=== PATIENT | male | born 1995 | race Two or more races ===

== ENCOUNTER 2020-10-26 15:59 | Inpatient (IN) | payer OTHER ==
[~2020-10-26] VITALS: Ht 177.8 cm; Wt 57.0 kg
[2020-10-26] MEDS ORDERED: DEXTROSE 50%-WATER 25 GM/50 ML SYRINGE IVP ONE (17:15)
[2020-10-26] MEDS ORDERED: SODIUM CHLORIDE 0.9% 1,000 ML IV ONE (17:15)
[2020-10-26 17:18] LABS: COVID AG,FIA SOURCE NASOPHARYNGEAL
[2020-10-26] MEDS ORDERED: METOCLOPRAMIDE HCL 5 MG/ML 2 ML VIAL IVP ONE (17:30)
[2020-10-26] MEDS ORDERED: MAGNESIUM SULFATE 2 GM, MVI, ADULT NO.1 WITH VIT K 10 ML, THIAMINE 100 MG, FOLIC ACID 1... IV ONE ×5 (17:30)
[2020-10-26 17:34] LABS: BASOPHILS % (AUTO) 0.6 % (0.0-2.0); EOSINOPHILS % (AUTO) 0.7 % (1.0-6.0); HEMATOCRIT 46.3 % (41-53); HEMOGLOBIN 15.9 g/dL (13.5-17.5); LYMPHOCYTES # (AUTO) 1.5 K/uL (1.0-4.8); LYMPHOCYTES % (AUTO) 28.7 % (22.0-44.0); MEAN CORPUSCULAR HEMOGLOBIN 29.8 pg (26.0-34.0); MEAN CORPUSCULAR HGB CONC 34.4 G/dL (31.0-37.0); MEAN CORPUSCULAR VOLUME 87 fL (80-100); MONOCYTES # (AUTO) 0.7 K/uL (0.1-1.0); MONOCYTES % (AUTO) 12.7 % (2.0-9.0); NEUTROPHILS # (AUTO) 3.1 K/uL (1.8-7.7); NEUTROPHILS % (AUTO) 57.3 % (40.0-70.0); PLATELET COUNT (AUTO) 228 K/uL (150-450); RED BLOOD CELL COUNT(AUTO) 5.34 MIL/uL (4.50-5.90); RED CELL DISTRIBUTION WIDTH 13.4 % (11.5-14.5)
[2020-10-26 17:43] LABS: ANION GAP 15 mmol/L (8-16); CALCIUM, TOTAL 8.6 mg/dL (8.8-10.5); CARBON DIOXIDE 22 mmol/L (22-29); CHLORIDE 98 mmol/L (98-107); CREATININE 0.79 mg/dL (0.60-1.30); GLOMERULAR FILTR. RATE CALC > 60 mL/min (>60); GLUCOSE,RANDOM 73 mg/dL (70-110); POTASSIUM 3.6 mmol/L (3.5-5.1); SODIUM SERUM 135 mmol/L (136-145); UREA NITROGEN, BLOOD 18 mg/dL (7-18)
[2020-10-26 18:07] LABS: ALANINE AMINOTRANSFERASE 159 U/L (12-78); ALBUMIN 3.8 g/dL (3.4-5.0); ALKALINE PHOSPHATASE 60 U/L (46-116); ASPARTATE AMINOTRANSFERASE 79 U/L (15-37); BILIRUBIN,TOTAL 0.7 mg/dL (0.1-1.0); CREATINE KINASE, TOTAL ONLY 536 U/L (39-308); LIPASE 320 U/L (73-393); TOTAL PROTEIN, SERUM 6.5 g/dL (6.4-8.2)
[2020-10-26] MEDS ORDERED: KETOROLAC TROMETHAMINE 30 MG/ML VIAL IVP ONE (18:15)
[2020-10-26 18:33] LABS: GLUCOSE,POINT OF CARE 203 MG/DL (70-110)
[2020-10-26] MEDS ORDERED: ONDANSETRON HCL 4 MG/2 ML VIAL IVP PRN (19:15)
[2020-10-26] MEDS ORDERED: 1: MAGNESIUM SULFATE 2 GM, MVI, ADULT NO.1 WITH VIT K 10 ML, THIAMINE 100 MG, FOLIC ACID IV SCH ×5 (19:15)
[2020-10-26 20:50] VITALS: BP 126/72
[2020-10-27] MEDS: HEPARIN SODIUM,PORCINE 5,000 UNITS/ML VIAL SQ SCH ×2 (00:37→09:09)
[2020-10-27] MEDS: COLCHICINE 0.6 MG TABLET PO SCH ×4 (00:37→21:00)
[2020-10-27] MEDS: 1: MAGNESIUM SULFATE 2 GM, MVI, ADULT NO.1 WITH VIT K 10 ML, THIAMINE 100 MG, FOLIC ACID IV SCH ×10 (00:38→19:22)
[2020-10-27 04:55] VITALS: BP 98/61
[2020-10-27] MEDS: MORPHINE SULFATE 2 MG/ML SYRINGE IVP PRN ×3 (06:08→21:02)
[2020-10-27 07:09] LABS: GLUCOMETER DEV NAME(LOC) 6N.1; GLUCOSE,POINT OF CARE 101 MG/DL (70-110)
[2020-10-27 07:09] LABS: GLUCOMETER DEV NAME(LOC) 6N.1; GLUCOSE,POINT OF CARE 72 MG/DL (70-110)
[2020-10-27 07:09] LABS: APPEARANCE,URINE CLEAR (CLEAR); BILIRUBIN,URINE NEGATIVE (NEGATIVE); GLUCOSE, URINE (UA) NEGATIVE (NEGATIVE); KETONES,URINE 15 mg/dL (NEGATIVE); LEUKOCYTE ESTERASE ,URINE NEGATIVE (NEGATIVE); NITRATE,URINE NEGATIVE (NEGATIVE); OCCULT BLOOD,URINE NEGATIVE (NEGATIVE); PROTEIN,URINE NEGATIVE (NEGATIVE); UROBILINOGEN,URINE 0.2 mg/dL (<=1.0)
[2020-10-27 07:14] LABS: AMPHET/METH SCREEN,URINE NEGATIVE (NEGATIVE); BARBITURATE SCREEN, URINE NEGATIVE (NEGATIVE); BENZODIAZEPINES SCREEN,URINE NEGATIVE (NEGATIVE); CANNABINOID SCREEN,URINE NEGATIVE (NEGATIVE); COCAINE SCREEN,URINE NEGATIVE (NEGATIVE); METHADONE SCREEN, URINE NEGATIVE (NEGATIVE); OPIATE SCREEN,URINE NEGATIVE (NEGATIVE)
[2020-10-27 07:16] LABS: PHENCYCLIDINE SCREEN,URINE NEGATIVE (NEGATIVE)
[2020-10-27 07:29] LABS: GLUCOMETER DEV NAME(LOC) 6S.1; GLUCOSE,POINT OF CARE 106 MG/DL (70-110)
[2020-10-27 08:20] VITALS: BP 111/66
[2020-10-27] MEDS ORDERED: MULTIVITAMINS WITH MINERALS, THERAPEUTIC TABLET PO SCH (09:00)
[2020-10-27] MEDS ORDERED: SODIUM CHLORIDE 0.9% 1,000 ML IV SCH (13:45)
[2020-10-27 17:21] LABS: GLUCOMETER DEV NAME(LOC) 6S.1; GLUCOSE,POINT OF CARE 82 MG/DL (70-110)
[2020-10-27 20:45] VITALS: BP 97/55
[2020-10-28 05:20] VITALS: BP 100/59
[2020-10-28 06:38] LABS: BASOPHILS % (AUTO) 0.4 % (0.0-2.0); EOSINOPHILS % (AUTO) 2.3 % (1.0-6.0); HEMATOCRIT 42.7 % (41-53); HEMOGLOBIN 14.6 g/dL (13.5-17.5); LYMPHOCYTES # (AUTO) 1.5 K/uL (1.0-4.8); LYMPHOCYTES % (AUTO) 27.7 % (22.0-44.0); MEAN CORPUSCULAR HEMOGLOBIN 30.3 pg (26.0-34.0); MEAN CORPUSCULAR HGB CONC 34.2 G/dL (31.0-37.0); MEAN CORPUSCULAR VOLUME 89 fL (80-100); MONOCYTES # (AUTO) 0.7 K/uL (0.1-1.0); MONOCYTES % (AUTO) 13.2 % (2.0-9.0); NEUTROPHILS % (AUTO) 56.4 % (40.0-70.0); PLATELET COUNT (AUTO) 183 K/uL (150-450); RED BLOOD CELL COUNT(AUTO) 4.81 MIL/uL (4.50-5.90); RED CELL DISTRIBUTION WIDTH 13.5 % (11.5-14.5)
[2020-10-28 07:14] LABS: ANION GAP 3 mmol/L (8-16); CARBON DIOXIDE 27 mmol/L (22-29); CHLORIDE 105 mmol/L (98-107); CREATININE 0.83 mg/dL (0.60-1.30); GLUCOSE,RANDOM 90 mg/dL (70-110); POTASSIUM 3.4 mmol/L (3.5-5.1); SODIUM SERUM 135 mmol/L (136-145); UREA NITROGEN, BLOOD 4 mg/dL (7-18)
[2020-10-28 07:15] LABS: ALANINE AMINOTRANSFERASE 133 U/L (12-78); ALBUMIN 3.2 g/dL (3.4-5.0); ALKALINE PHOSPHATASE 59 U/L (46-116); ASPARTATE AMINOTRANSFERASE 69 U/L (15-37); BILIRUBIN,TOTAL 0.5 mg/dL (0.1-1.0); CREATINE KINASE, TOTAL ONLY 712 U/L (39-308); GLOMERULAR FILTR. RATE CALC > 60 mL/min (>60); PHOSPHORUS 2.5 mg/dL (2.5-4.9); TOTAL PROTEIN, SERUM 5.6 g/dL (6.4-8.2)
[2020-10-28 07:44] LABS: GLUCOMETER DEV NAME(LOC) 6N.1; GLUCOSE,POINT OF CARE 96 MG/DL (70-110)
[2020-10-28 07:44] LABS: GLUCOMETER DEV NAME(LOC) 6S.1; GLUCOSE,POINT OF CARE 100 MG/DL (70-110)
[2020-10-28 07:44] LABS: GLUCOMETER DEV NAME(LOC) 6S.1; GLUCOSE,POINT OF CARE 85 MG/DL (70-110)
[2020-10-28 07:56] VITALS: BP 113/57
[2020-10-28] MEDS: COLCHICINE 0.6 MG TABLET PO SCH ×3 (08:50→21:01)
[2020-10-28] MEDS: MORPHINE SULFATE 2 MG/ML SYRINGE IVP PRN (08:56)
[2020-10-28 12:34] LABS: GLUCOMETER DEV NAME(LOC) 6N.1; GLUCOSE,POINT OF CARE 116 MG/DL (70-110)
[2020-10-28] MEDS ORDERED: 1: MAGNESIUM SULFATE 2 GM, MVI, ADULT NO.1 WITH VIT K 10 ML, THIAMINE 100 MG, FOLIC ACID IV SCH ×5 (14:00)
[2020-10-28] MEDS: 1: MAGNESIUM SULFATE 2 GM, MVI, ADULT NO.1 WITH VIT K 10 ML, THIAMINE 100 MG, FOLIC ACID IV SCH ×10 (14:46→21:02)
[2020-10-28] MEDS ORDERED: POTASSIUM CHLORIDE 20 MEQ ER TABLET PO ONE (16:30)
[2020-10-28 19:59] LABS: GLUCOMETER DEV NAME(LOC) 6S.1; GLUCOSE,POINT OF CARE 81 MG/DL (70-110)
[2020-10-28 20:31] VITALS: BP 112/65
[2020-10-28 22:22] LABS: GLUCOMETER DEV NAME(LOC) 6N.1; GLUCOSE,POINT OF CARE 136 MG/DL (70-110)
[2020-10-29 04:00] VITALS: BP 102/60
[2020-10-29] MEDS ORDERED: SODIUM CHLORIDE 0.9% 0 ML ONE (06:08)
[2020-10-29] MEDS: 1: MAGNESIUM SULFATE 2 GM, MVI, ADULT NO.1 WITH VIT K 10 ML, THIAMINE 100 MG, FOLIC ACID IV SCH ×15 (06:08→21:43)
[2020-10-29 06:37] LABS: BASOPHILS % (AUTO) 0.6 % (0.0-2.0); EOSINOPHILS % (AUTO) 2.9 % (1.0-6.0); HEMOGLOBIN 14.6 g/dL (13.5-17.5); LYMPHOCYTES # (AUTO) 1.6 K/uL (1.0-4.8); LYMPHOCYTES % (AUTO) 32.8 % (22.0-44.0); MEAN CORPUSCULAR HEMOGLOBIN 30.3 pg (26.0-34.0); MEAN CORPUSCULAR HGB CONC 34.8 G/dL (31.0-37.0); MEAN CORPUSCULAR VOLUME 87 fL (80-100); MONOCYTES # (AUTO) 0.6 K/uL (0.1-1.0); MONOCYTES % (AUTO) 12.7 % (2.0-9.0); NEUTROPHILS # (AUTO) 2.5 K/uL (1.8-7.7); PLATELET COUNT (AUTO) 188 K/uL (150-450); RED BLOOD CELL COUNT(AUTO) 4.82 MIL/uL (4.50-5.90); RED CELL DISTRIBUTION WIDTH 13.8 % (11.5-14.5)
[2020-10-29 07:01] LABS: ALANINE AMINOTRANSFERASE 155 U/L (12-78); ALBUMIN 3.1 g/dL (3.4-5.0); ALKALINE PHOSPHATASE 67 U/L (46-116); ANION GAP 11 mmol/L (8-16); ASPARTATE AMINOTRANSFERASE 91 U/L (15-37); BILIRUBIN,TOTAL 0.5 mg/dL (0.1-1.0); CALCIUM, TOTAL 8.1 mg/dL (8.8-10.5); CARBON DIOXIDE 27 mmol/L (22-29); CHLORIDE 105 mmol/L (98-107); CREATININE 0.62 mg/dL (0.60-1.30); GLOMERULAR FILTR. RATE CALC > 60 mL/min (>60); GLUCOSE,RANDOM 90 mg/dL (70-110); POTASSIUM 3.9 mmol/L (3.5-5.1); SODIUM SERUM 143 mmol/L (136-145); TOTAL PROTEIN, SERUM 5.7 g/dL (6.4-8.2); UREA NITROGEN, BLOOD 3 mg/dL (7-18)
[2020-10-29 07:22] LABS: GLUCOMETER DEV NAME(LOC) 6N.1; GLUCOSE,POINT OF CARE 100 MG/DL (70-110)
[2020-10-29] MEDS: COLCHICINE 0.6 MG TABLET PO SCH (08:09)
[2020-10-29] MEDS: MULTIVITAMINS WITH MINERALS, THERAPEUTIC TABLET PO SCH (08:09)
[2020-10-29 08:22] VITALS: BP 109/58
[2020-10-29] MEDS ORDERED: SODIUM CHLORIDE 0.9% 500 ML IV ONE (10:02)
[2020-10-29] MEDS ORDERED: SODIUM CHLORIDE 0.9% 1,000 ML ONE (11:33)
[2020-10-29 12:38] LABS: GLUCOMETER DEV NAME(LOC) 6N.1; GLUCOSE,POINT OF CARE 106 MG/DL (70-110)
[2020-10-29] MEDS ORDERED: ONDANSETRON HCL 4 MG/2 ML VIAL IVP PRN (14:30)
[2020-10-29] MEDS: FAMOTIDINE 20 MG TABLET PO SCH ×2 (15:15→21:42)
[2020-10-29] MEDS: DICLOFENAC SODIUM 25 MG DR TABLET PO PRN (15:15)
[2020-10-29 17:54] LABS: GLUCOMETER DEV NAME(LOC) 6N.1; GLUCOSE,POINT OF CARE 114 MG/DL (70-110)
[2020-10-29 19:30] VITALS: BP 111/60
[2020-10-30 03:35] VITALS: BP 125/60
[2020-10-30] MEDS: 1: MAGNESIUM SULFATE 2 GM, MVI, ADULT NO.1 WITH VIT K 10 ML, THIAMINE 100 MG, FOLIC ACID IV SCH ×10 (04:38→17:37)
[2020-10-30] MEDS: DICLOFENAC SODIUM 25 MG DR TABLET PO PRN (05:29)
[2020-10-30 07:06] LABS: GLUCOMETER DEV NAME(LOC) 6N.1; GLUCOSE,POINT OF CARE 113 MG/DL (70-110)
[2020-10-30 07:06] LABS: GLUCOMETER DEV NAME(LOC) 6N.1; GLUCOSE,POINT OF CARE 98 MG/DL (70-110)
[2020-10-30 07:24] VITALS: BP 98/52
[2020-10-30] MEDS: MULTIVITAMINS WITH MINERALS, THERAPEUTIC TABLET PO SCH (07:58)
[2020-10-30] MEDS: FAMOTIDINE 20 MG TABLET PO SCH ×2 (07:58→20:11)
[2020-10-30 13:13] LABS: GLUCOMETER DEV NAME(LOC) 6S.1; GLUCOSE,POINT OF CARE 93 MG/DL (70-110)
[2020-10-30 15:13] VITALS: BP 106/52
[2020-10-30] MEDS: DICLOFENAC SODIUM 50 MG DR TABLET PO PRN ×2 (15:14→20:11)
[2020-10-30 20:00] LABS: GLUCOMETER DEV NAME(LOC) 6N.1; GLUCOSE,POINT OF CARE 94 MG/DL (70-110)
[2020-10-30 20:36] VITALS: BP 96/51
[2020-10-30 23:34] LABS: GLUCOMETER DEV NAME(LOC) 6N.1; GLUCOSE,POINT OF CARE 122 MG/DL (70-110)
[2020-10-31] MEDS: 1: MAGNESIUM SULFATE 2 GM, MVI, ADULT NO.1 WITH VIT K 10 ML, THIAMINE 100 MG, FOLIC ACID IV SCH ×15 (02:15→20:52)
[2020-10-31 05:43] VITALS: BP 96/52
[2020-10-31 06:17] LABS: BASOPHILS % (AUTO) 0.7 % (0.0-2.0); EOSINOPHILS % (AUTO) 3.3 % (1.0-6.0); HEMATOCRIT 41.6 % (41-53); HEMOGLOBIN 14.2 g/dL (13.5-17.5); LYMPHOCYTES # (AUTO) 1.8 K/uL (1.0-4.8); MEAN CORPUSCULAR HEMOGLOBIN 30.5 pg (26.0-34.0); MEAN CORPUSCULAR HGB CONC 34.2 G/dL (31.0-37.0); MEAN CORPUSCULAR VOLUME 89 fL (80-100); MONOCYTES # (AUTO) 0.4 K/uL (0.1-1.0); NEUTROPHILS # (AUTO) 2.1 K/uL (1.8-7.7); PLATELET COUNT (AUTO) 183 K/uL (150-450); RED BLOOD CELL COUNT(AUTO) 4.66 MIL/uL (4.50-5.90); RED CELL DISTRIBUTION WIDTH 13.7 % (11.5-14.5)
[2020-10-31 06:41] LABS: ALANINE AMINOTRANSFERASE 144 U/L (12-78); ALKALINE PHOSPHATASE 68 U/L (46-116); ANION GAP 7 mmol/L (8-16); ASPARTATE AMINOTRANSFERASE 65 U/L (15-37); BILIRUBIN,TOTAL 0.4 mg/dL (0.1-1.0); CALCIUM, TOTAL 8.3 mg/dL (8.8-10.5); CARBON DIOXIDE 28 mmol/L (22-29); CHLORIDE 106 mmol/L (98-107); CREATININE 0.81 mg/dL (0.60-1.30); GLOMERULAR FILTR. RATE CALC > 60 mL/min (>60); GLUCOSE,RANDOM 86 mg/dL (70-110); POTASSIUM 4.5 mmol/L (3.5-5.1); SODIUM SERUM 141 mmol/L (136-145); TOTAL PROTEIN, SERUM 5.8 g/dL (6.4-8.2); UREA NITROGEN, BLOOD 8 mg/dL (7-18)
[2020-10-31 07:29] VITALS: BP 97/57
[2020-10-31] MEDS: FAMOTIDINE 20 MG TABLET PO SCH ×2 (08:24→20:52)
[2020-10-31] MEDS: MULTIVITAMINS WITH MINERALS, THERAPEUTIC TABLET PO SCH (08:24)
[2020-10-31] MEDS: DICLOFENAC SODIUM 50 MG DR TABLET PO PRN (08:24)
[2020-10-31 09:57] LABS: GLUCOMETER DEV NAME(LOC) 6N.1; GLUCOSE,POINT OF CARE 89 MG/DL (70-110)
[2020-10-31 12:59] LABS: GLUCOMETER DEV NAME(LOC) 6N.1; GLUCOSE,POINT OF CARE 87 MG/DL (70-110)
[2020-10-31 20:15] VITALS: BP 99/54
[2020-10-31 23:33] VITALS: BP 93/51
[2020-10-31 23:39] LABS: GLUCOMETER DEV NAME(LOC) 6N.1; GLUCOSE,POINT OF CARE 127 MG/DL (70-110)
[2020-10-31 23:39] LABS: GLUCOMETER DEV NAME(LOC) 6S.1; GLUCOSE,POINT OF CARE 77 MG/DL (70-110)
[2020-11-01] MEDS: 1: MAGNESIUM SULFATE 2 GM, MVI, ADULT NO.1 WITH VIT K 10 ML, THIAMINE 100 MG, FOLIC ACID IV SCH ×10 (05:09→12:46)
[2020-11-01 05:27] VITALS: BP 99/57
[2020-11-01] MEDS: DICLOFENAC SODIUM 50 MG DR TABLET PO PRN ×2 (05:54→11:23)
[2020-11-01 06:57] LABS: GLUCOMETER DEV NAME(LOC) 6N.1; GLUCOSE,POINT OF CARE 73 MG/DL (70-110)
[2020-11-01 07:09] LABS: ALANINE AMINOTRANSFERASE 146 U/L (12-78); ALBUMIN 3.2 g/dL (3.4-5.0); ALKALINE PHOSPHATASE 62 U/L (46-116); ANION GAP 9 mmol/L (8-16); ASPARTATE AMINOTRANSFERASE 66 U/L (15-37); BILIRUBIN,TOTAL 0.4 mg/dL (0.1-1.0); CALCIUM, TOTAL 8.3 mg/dL (8.8-10.5); CARBON DIOXIDE 30 mmol/L (22-29); CHLORIDE 105 mmol/L (98-107); CREATININE 0.74 mg/dL (0.60-1.30); GLOMERULAR FILTR. RATE CALC > 60 mL/min (>60); GLUCOSE,RANDOM 84 mg/dL (70-110); POTASSIUM 4.9 mmol/L (3.5-5.1); SODIUM SERUM 144 mmol/L (136-145); TOTAL PROTEIN, SERUM 5.8 g/dL (6.4-8.2); UREA NITROGEN, BLOOD 8 mg/dL (7-18)
[2020-11-01 08:00] VITALS: BP 109/57
[2020-11-01] MEDS: FAMOTIDINE 20 MG TABLET PO SCH (08:02)
[2020-11-01] MEDS: MULTIVITAMINS WITH MINERALS, THERAPEUTIC TABLET PO SCH (08:03)
[2020-11-01] MEDS ORDERED: DICL50TA9 PO (12:35)
[2020-11-01] MEDS ORDERED: MULT-264 PO (12:35)
[2020-11-01] MEDS ORDERED: FAMO20 PO (12:35)
[2020-11-01] MEDS ORDERED: SODIUM CHLORIDE 0.9% 1,000 ML ONE (12:43)
[2020-11-01 18:44] LABS: GLUCOMETER DEV NAME(LOC) 6S.1; GLUCOSE,POINT OF CARE 82 MG/DL (70-110)
== END 2020-11-01 17:00 | DRG 545 ==
LOC: EMS 15:59 → 6S 18:59
PROVIDERS: ADMIT Internal Medicine; ATTEND Internal Medicine
DX: M04.1 Periodic fever syndromes (principal); E43 Unspecified severe protein-calorie malnutrition; Z68.1 Body mass index [BMI] 19.9 or less, adult; F33.2 Major depressive disorder, recurrent severe without psychotic features; Z20.822 Contact with and (suspected) exposure to COVID-19
CPT/HCPCS: 76705; 80074; 80307; 82948; 83735; 84100; 85651; 87426; 97110; 97116; 97140; 97162; 97165; 97530; 97535; 99285; J1644; J1885; J2270; J2765; J3411; J3475; J3490; J7030; J7040